=== PATIENT | female | born 1970 | race Asian ===

== ENCOUNTER → 2024-03-10 | Outpatient (CLI) | payer OTHER, SELFPAY ==
--- NOTE | 2024-03-10 08:25 | DI.MG.S_ITS ---
UNILATERAL RIGHT DIGITAL SCREENING MAMMOGRAM 3D/2D WITH CAD: 03/10/2024 CLINICAL: Routine screening. Personal history of left breast cancer. No prior exams were available for comparison. The right breast is heterogeneously dense, which may obscure small masses (category c / 51-75% glandular tissue). Current study was also evaluated with a Computer Aided Detection (CAD) system. There are benign calcifications in the right breast. There also is a biopsy clip in the right breast. No significant masses, calcifications, or other findings are seen in the breast. IMPRESSION: BENIGN There is no mammographic evidence of malignancy. A 1 year screening mammogram is recommended. This exam was interpreted at Station ID: [id number]. NOTE: For mammograms, a report in lay terms will be sent to the patient. Approximately 15% of breast malignancies will not be visualized mammographically. In the management of a palpable breast mass, a negative mammogram must not discourage biopsy of a clinically suspicious lesion. Electronically Signed By: Meenu harris/[email or web address]:03/23/2024 10:14:01 letter sent: Normal Exam ACR BI-RADS Category 2: Benign Finding(s) 3342F
== END ==
LOC: MAMMO 08:24
PROVIDERS: PCP Registered Nurse; Referring Provider Registered Nurse; Visit Provider Registered Nurse
DX: Z12.31 Encounter for screening mammogram for malignant neoplasm of breast (principal); Z85.3 Personal history of malignant neoplasm of breast; R92.331 Mammographic heterogeneous density, right breast
CPT/HCPCS: 77063; 77067

== ENCOUNTER 2025-05-28 09:45 | Emergency (ER) | payer OTHER, SELFPAY ==
[2025-05-28 09:51] VITALS: BP 119/56; PULSE 84; RESP 17; TEMP 37.6; O2SAT 98; BMI 27.4
--- NOTE | 2025-05-28 09:55 | EKG_ITS ---
[address] [address] Test Date: 2025-05-28 Pat Name: Amy Corcoran Department: [facility] Room: Gender: Female Respiratory Care Practitioner: HAN : 1970 Requested By: Order Number: [id number] Reading MD: Lucio Vargas MD Measurements Intervals [place] Rate: 82 P: 84 IA: 156 QRS: 82 QRSD: 62 T: 73 QT: 364 QTc: 425 Interpretive Statements Normal sinus rhythm Possible Left atrial enlargement Septal infarct , age undetermined Electronically Signed On 05-28-2025 11:27:46 PDT by Lucio Vargas MD
[2025-05-28 10:24] LABS: Add Manual Diff / Slide Review NO; Hematocrit 36.2 % (36-46); Hemoglobin 12.9 g/dL (12.0-16.0); Lymphocytes Absolute Auto 2100 /uL (1100-4500); Mean Corpuscular HGB Conc 35.5 % (30-36); Mean Corpuscular Hemoglobin 30.9 PG (26-34); Mean Corpuscular Volume 87.0 fL (80-100); Platelet Count 172 X10^3/uL (150-400)
[2025-05-28 10:38] LABS: Alanine Aminotransferase 12 IU/L (<35); Albumin 4.7 g/dL (3.5-5.0); Albumin Globulin Ratio 1.6 (1.0-2.8); Alkaline Phosphatase 62 U/L (38-126); Blood Urea Nitrogen 13 mg/dL (7-17); Calcium 9.0 mg/dL (8.4-10.2); Carbon Dioxide 27 mmol/L (22-32); Chloride 102 mmol/L (98-107); Estimated Glomerular Filt Rate > 60 mL/min (>60); Globulin 2.9 g/dL (1.7-4.1); Glucose 111 mg/dL (70-99); HEMOLYSIS < 15 (0-50); Potassium 3.8 mmol/L (3.4-5.1); Sodium 137 mmol/L (137-145); Total Protein 7.6 g/dL (6.3-8.2)
[2025-05-28 10:44] LABS: Influenza A - CEPHEID Flu A NEGATIVE (NEGATIVE); Influenza B - CEPHEID Flu B NEGATIVE (NEGATIVE)
[2025-05-28 10:46] LABS: COVID-19 CEPHEID 4-PLEX PCR Negative (Negative)
--- NOTE | 2025-05-28 10:55 | ED.URI ---
HPI - URI/Sore Throat General Chief Complaint: Upper Respiratory Symptoms Stated Complaint: [facility], chest pain stiff neck x1 day, fever Time Seen by Provider: 05/28/25 10:37 Source: patient Mode of arrival: Family Vehicle History of Present Illness HPI Narrative: Patient is a 54-year-old female healthy presenting today with upper respiratory like symptoms. She reports that she was concerned that she may have viral meningitis. 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 She had a headache 3 days ago the following day she went got acupuncture she has not had a headache since. She has had some chills as well. She does still report some neck stiffness whenever she puts her chin down to her chest. She was noticing some chest discomfort as well. No significant fever or cough. She did take 2 doses of acyclovir thinking that that may help. Related Data Allergies Allergy/AdvReac Type Severity Reaction Status Date / Time No Known Drug Allergies Allergy Verified 05/28/25 09:51 Patient History Social History Smoking Status: Never smoker Smoking Status: Never smoker Alcohol type: wine Exam Initial Vital Signs Initial Vital Signs: Vital Signs Temperature 99.7 F H 05/28/25 09:51 Pulse Rate 84 05/28/25 09:51 Respiratory Rate 17 05/28/25 09:51 Blood Pressure 119/56 L 05/28/25 09:51 Pulse Oximetry 98 05/28/25 09:51 Oxygen Delivery Method Room Air 05/28/25 09:51 Course Orders Ordered: ED Orders 05/28/25 09:51 EKG-12 Lead Stat 05/28/25 09:57 Covid-19 + FLU A/B + RSV - PCR Stat 05/28/25 10:10 CBC Auto Diff [Complete Blood Count AUTO DIFF] Stat CMP [Comprehensive Metabolic Panel] Stat Vital Signs Vital signs: Vital Signs - 8 hr 05/28/25 09:51 05/28/25 11:18 Temperature 99.7 F H 99.6 F Pulse Rate 84 75 Respiratory Rate 17 18 Blood Pressure 119/56 L 102/59 L Pulse Oximetry 98 97 Oxygen Delivery Method Room Air Room Air MDM - URI/Sore Throat Lab Data 05/28/25 10:10 05/28/25 10:10 Labs: Lab Results 05/28/25 05/28/25 Range/Units 09:57 10:10 WBC 6.3 (4.5-11.0) X10^3/uL RBC 4.17 (4.0-5.2) X10^6/uL Hgb 12.9 (12.0-16.0) g/dL Hct 36.2 (36-46) % MCV 87.0 (80-100) fL MCH 30.9 (26-34) PG MCHC 35.5 (30-36) % RDW 12.9 (11.6-14.8) % Plt Count 172 (150-400) X10^3/uL Neut % (Auto) 61.6 (50-75) % Lymph % (Auto) 32.7 (25-40) % [place] % (Auto) 3.8 (3-14) % Eos % (Auto) 1.1 L (2-4) % Baso % (Auto) 0.8 (0-2) % Neut # (Auto) 3900 (4978-4885) /uL Lymph # (Auto) 2100 (0383-7205) /uL [place] # (Auto) 200 (0-900) /uL Eos # (Auto) 100 (0-450) /uL Baso # (Auto) 100 (0-100) /uL Sodium 137 (137-145) mmol/L Potassium 3.8 (3.4-5.1) mmol/L Chloride 102 (98-107) mmol/L Carbon Dioxide 27 (22-32) mmol/L BUN 13 (7-17) mg/dL Creatinine 0.73 (0.52-1.04) mg/dL Estimated GFR > 60 (>60) mL/min BUN/Creatinine Ratio 17.8 (6-22) Glucose 111 H (70-99) mg/dL Calcium 9.0 (8.4-10.2) mg/dL Total Bilirubin 1.3 (0.2-1.3) mg/dL AST 26 (14-36) IU/L ALT 12 (<35) IU/L Alkaline Phosphatase 62 (38-126) U/L Total Protein 7.6 (6.3-8.2) g/dL Albumin 4.7 (3.5-5.0) g/dL Globulin 2.9 (1.7-4.1) g/dL Albumin/Globulin Ratio 1.6 (1.0-2.8) SARS-CoV-2 (PCR) Negative (Negative) Influenza A (RT-PCR) Flu a negative (NEGATIVE) Influenza B (RT-PCR) Flu b negative (NEGATIVE) RSV (PCR) Negative (Negative) ECG Data Attestation: I personally reviewed and interpreted this ECG as follows: Prior ECG tracings: available for review Interpretation: Normal sinus rhythm rate 82 MD interval 156 QRS [address] change MDM Narrative Medical decision making narrative: Patient is a healthy 54-year-old female presenting today with upper respiratory like symptoms. She had a headache 2 days ago had acupuncture does not have a headache now she does have some neck strain but really has full range of motion. I do not appreciate meningeal signs she overall appears very well nontoxic. Blood work has been reviewed she has no leukocytosis no anemia electrolytes are within normal limits. Viral panel is negative. EKGs has been reviewed without any ischemia or electrolyte abnormality. At this time I do not think that patient needs lumbar puncture I discussed this with her. Supportive care only. All questions have been answered. Discharge Plan Departure Patient Disposition: Home Clinical Impression: Upper respiratory infection Instructions: DI for Viral Upper Respiratory Infection -- Adult Activity Restrictions/Additional Instructions: *You have been diagnosed with upper respiratory infection *What to do: At this time continue to drink fluids and eat as tolerated I hope that your headache remains gone *Continue to take medications as directed *Follow up with your primary care provider in 2-3 days or call [phone] *Return to ER if you should have increasing headache neck pain fever or any new, worsening or concerning symptoms Referrals: Luna Vences ARNP [Primary Care Provider, [facility]] Stand Alone Forms: Patient Portal/API
[2025-05-28 11:18] VITALS: BP 102/59; PULSE 75; RESP 18; TEMP 37.6; O2SAT 97
== END 2025-05-28 11:20 | disposition home or self-care (01) ==
PROVIDERS: Emergency Provider Emergency Medicine; PCP Registered Nurse
DX: J06.9 Acute upper respiratory infection, unspecified (principal); R07.9 Chest pain, unspecified
CPT/HCPCS: 80053; 85025; 87637; 93005; 93010; 99281; 99284